=== PATIENT | male | born 1940 | race Caucasian/White ===

== ENCOUNTER 2022-06-14 18:10 | Outpatient (CLI) | payer MEDICARE | END 2022-06-14 18:45 | disposition home or self-care (01) | LOC: CSHMRI 18:10 | PROVIDERS: ATTEND Emergency Medicine Emergency Medical Services | DX: R53.1 Weakness (principal); Z98.890 Other specified postprocedural states; Z98.1 Arthrodesis status; M48.02 Spinal stenosis, cervical region; M47.812 Spondylosis without myelopathy or radiculopathy, cervical region; Q76.49 Other congenital malformations of spine, not associated with scoliosis; R90.82 White matter disease, unspecified; Z86.73 Personal history of transient ischemic attack (TIA), and cerebral infarction without residual deficits | CPT/HCPCS: 70551; 72141 ==